=== PATIENT | male | born 1965 | race Caucasian/White ===

== ENCOUNTER 2023-03-25 13:36 | Emergency (ER) | payer OTHER ==
[2023-03-25 13:49] VITALS: TEMP 97.8; BMI 27.8
[2023-03-25 15:23] LABS: BASO % 0.8 % (0-2.0); EOS % 3.1 % (0-4.5); HEMATOCRIT 47.6 % (35.4-49); HEMOGLOBIN 16.1 GM/dL (11.7-16.9); LYMPH % 29.7 % (8-40); MCH 29.3 pg (25.7-33.7); MCHC 33.7 g/dl (32.0-35.9); MEAN CELL VOLUME 87.1 fl (80-96); MEAN PLT VOLUME 7.6 fl (7.5-11.1); MONO % 8.2 % (3.8-10.2); NEUT % 58.2 % (42.8-82.8); PLATELET COUNT 317 10^3/uL (134-434); RBC 5.47 M/mm3 (4.00-5.60); RDW 14.8 % (11.9-15.9); URINE APPEARANCE CLEAR; URINE BILIRUBIN NEGATIVE (NEGATIVE); URINE COLOR YELLOW; URINE GLUCOSE (UA) NEGATIVE (NEGATIVE); URINE KETONE NEGATIVE (NEGATIVE); URINE LEUK ESTERASE NEGATIVE (NEGATIVE); URINE NITRITE NEGATIVE (NEGATIVE); URINE PROTEIN NEGATIVE (NEGATIVE); URINE UROBILINOGEN 0.2 mg/dL (0.2-1.0); WHITE BLOOD COUNT 10.6 K/mm3 (4.0-10.0)
[2023-03-25 15:56] LABS: ALBUMIN 4.4 g/dl (3.4-5.0); CALCIUM 9.5 mg/dL (8.5-10.1)
[2023-03-25 15:57] LABS: BLOOD UREA NITROGEN 14.7 mg/dL (7-18)
[2023-03-25 15:59] LABS: CREATININE 0.9 mg/dL (0.55-1.3)
[2023-03-25 16:01] LABS: BILIRUBIN,TOTAL 0.5 mg/dL (0.2-1); TOT PROT 7.3 g/dl (6.4-8.2)
[2023-03-25 16:11] LABS: LACTIC ACID 2.9 mmol/L (0.4-2.0)
[2023-03-25] MEDS ORDERED: SODIUM CHLORIDE 0.9% 500 ML INFUS.BAG IV ONE (17:10)
[2023-03-25 19:51] VITALS: BP 150/81; PULSE 86; RESP 16
== END 2023-03-25 20:05 | disposition home or self-care (01) ==
LOC: JER 13:36
DX: K42.9 Umbilical hernia without obstruction or gangrene (principal); K40.90 Unilateral inguinal hernia, without obstruction or gangrene, not specified as recurrent
CPT/HCPCS: 36415; 74177-TC; 80053; 81003; 83605; 85025; 87086; 99284-25; Q9967

== ENCOUNTER 2023-03-28 08:24 | Emergency (ER) | payer OTHER ==
[2023-03-28 08:31] VITALS: BMI 27.3
[2023-03-28] MEDS ORDERED: FAMOTIDINE 20 MG TABLET PO ONE (09:15)
[2023-03-28] MEDS ORDERED: diphenhydrAMINE HCL 50 MG CAPSULE PO ONE (09:15)
[2023-03-28] MEDS ORDERED: diphenhydrAMINE HCL 25 MG CAPSULE (FP) PO ONE (09:27)
[2023-03-28] MEDS ORDERED: FAMOTIDINE 20 MG TABLET ONE (09:27)
[2023-03-28 09:38] VITALS: BP 149/87; PULSE 97; RESP 16; TEMP 97.9
== END 2023-03-28 10:05 | disposition home or self-care (01) ==
LOC: JER 08:24
DX: L50.9 Urticaria, unspecified (principal)
CPT/HCPCS: 99283-25

== ENCOUNTER 2023-03-31 07:57 | Emergency (ER) | payer OTHER ==
[2023-03-31 08:19] VITALS: BP 135/85; PULSE 80; RESP 18; TEMP 97.8; BMI 27.7
[2023-03-31] MEDS ORDERED: FAMOTIDINE 20 MG TABLET PO ONE (09:21)
[2023-03-31] MEDS ORDERED: predniSONE 20 MG TABLET (UD) PO ONE (09:21)
[2023-03-31] MEDS ORDERED: predniSONE 20 MG TABLET (UD) ONE (09:31)
[2023-03-31] MEDS ORDERED: FAMOTIDINE 20 MG TABLET ONE (09:31)
== END 2023-03-31 10:09 | disposition home or self-care (01) ==
LOC: JER 07:57
DX: L50.9 Urticaria, unspecified (principal); T78.40XA Allergy, unspecified, initial encounter; R21 Rash and other nonspecific skin eruption
CPT/HCPCS: 99283-25